=== PATIENT | male | born 1930 | race African-American/Black ===

== ENCOUNTER 2016-08-05 11:07 | Day surgery (SDC) | payer OTHER ==
[2016-07-31 11:57] LABS: HEMATOCRIT 42.9 % (40.0-51.0); HEMOGLOBIN 14.5 g/dL (13.6-17.8)
[2016-07-31 12:12] LABS: BUN (BLOOD UREA NITROGEN) 12 MG/DL (6-23); CHLORIDE, SERUM 106 MMOL/L (96-112); CO2 (CARBON DIOXIDE) 26 MMOL/L (24-34); CREATININE 1.25 MG/DL (0.70-1.30); GFR AFRICAN AMERICAN 61 ML/MIN (>=60); GFR NON AFRICAN AMERICAN 53 ML/MIN (>=60); GLUCOSE, SERUM 110 MG/DL (60-99); POTASSIUM, SERUM 4.4 MMOL/L (3.5-5.3); SODIUM, SERUM 142 MMOL/L (135-148)
--- NOTE | ~2016-08-05 | OP ---
Record Of Operation [facility] [address] [place]. 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 PROCEDURE: Excision of right posterior gouty tophus 8 cm in height and 6 cm in diameter at the base with extra surrounding tissue that has been damaged. PHYSICIAN: Dr. Dominique. ACADEMIC ADMINISTRATOR: Rosalind Bethea. ESTIMATED BLOOD LOSS: Less than 5 mL. SPECIMENS: Large gouty tophus sent to pathology and to Microbiology for crystals. COMPLICATIONS: None. DISPOSITION: The patient tolerated the procedure well and was brought to the recovery room in stable condition. PROCEDURE NOTE: The patient was brought to the operating room and placed in the supine position. After general anesthesia was administered, a pneumatic tourniquet was placed around the right proximal arm and right upper extremity distal to the tourniquet was prepped and draped in the usual sterile manner and a surgical timeout was performed and everyone was in agreement. An Esmarch was then used to exsanguinate the extremity and the tourniquet was inflated. A 10 blade scalpel was used to excise the skin around the mass. There was already damaged skin on the posterior portion of the olecranon because of damage/stretching due to the mass and recurrent bruising in the region. Nonetheless a 10 blade scalpel was used to make an elliptical incision with the axis on the long axis of the forearm/elbow. The total length of the incision was 16.5 cm and after incising the skin, blunt and sharp dissection was carried out around the gouty tophus which was with a portion of it well encapsulated in the bursa. This was then removed and its base was inspected. It was gouty tophus entering the bone and this was curetted out. The ulnar nerve was protected throughout the whole surgery and after irrigating the wound, the skin was closed directly [id number] using 2-0 and then later 3-0 nylon suture. A sterile dressing and a posterior splint was applied after the tourniquet was released. The patient tolerated the procedure well and was ready to be brought to the recovery room in stable condition. /MODL Record Of Operation [address] [address] NAME: DION CASILLAS : 34 STATUS : REG [facility]#: [id number] AGE: 86 ADM/REG DATE : 08/05/16 MR#: [id number] REPORT SERV DATE: 08/05/16 DICTATED BY: KAT DOMINIQUE DATE: 08/05/16 REPORT STATUS : Draft TRANSCRIBED BY: EL DATE: 08/05/16 Kat Dominique M.D. / [id number] CC: Tanya De Santiago M.D.
[~2016-08-05 11:07] MED LIST: HYZAAR1 TAB PO; Z100 PO
== END 2016-08-05 17:04 | disposition home or self-care (01) ==
LOC: SDC 11:07
PROVIDERS: Orthopaedic Surgery Hand Surgery
PROC: 0XB Anatomical Regions, Upper Extremities, Excision (ICD-10-PCS; principal; 2016-08-05 12:45)
DX: M10.9 Gout, unspecified (principal); I10 Essential (primary) hypertension; M19.90 Unspecified osteoarthritis, unspecified site
CPT/HCPCS: 80048; 85014; 85018; 88305; 89060; 93005; A9270-GY; J0690; J2250; J2270; J2405; J3010